=== PATIENT | male | born 1970 | race Hispanic/Latino ===

== ENCOUNTER 2019-05-01 19:00 | Emergency (ER) | payer SELFPAY ==
[~2019-05-01] VITALS: Ht 167.6 cm; Wt 81.6 kg
[2019-05-01] MEDS ORDERED: IBUPROFEN 600 MG TAB PO ONE (20:01)
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
[2019-05-01 21:26] VITALS: BP 144/97
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
== END 2019-05-01 21:27 | disposition home or self-care (01) ==
LOC: ER 19:00
DX: S16.1XXA Strain of muscle, fascia and tendon at neck level, initial encounter (principal); V43.52XA Car driver injured in collision with other type car in traffic accident, initial encounter; Y92.488 Other paved roadways as the place of occurrence of the external cause; E11.9 Type 2 diabetes mellitus without complications; F17.210 Nicotine dependence, cigarettes, uncomplicated
CPT/HCPCS: 72050; 99283